=== PATIENT | female | born 1980 | race Caucasian/White ===

== ENCOUNTER 2016-12-14 14:28 | Emergency (ER) | payer OTHER ==
[2016-12-14] MEDS ORDERED: KETOROLAC TROMETHAMINE INJ 30 MG/ML VIAL IM ONE (15:40)
[2016-12-14] MEDS ORDERED: HYDROcodone 7.5MG/APAP 325MG 1 EA TAB PO ONE (15:40)
--- NOTE | 2016-12-14 16:29 | ED.PDOC ---
History of Present Illness - General Chief Complaint: Cardiovascular Problem Time Seen by Provider: 12/14/16 14:30 Source: patient Exam Limitations: no limitations - History of Present Illness Initial Comments: the patient is 36-year-old female presenting to the emergency room secondary to her blood pressure being up primarily. Her blood pressures been up for the last month or so with her checks with her primary care doctor and they have been adjusting her medications to try to control. She presented to the emergency room today in particular due to a [id number] headache that' s been present for 12-24 hours. No altered mental status. No neurological symptoms. No fevers. No cough. No sore throat. Headache is circumferential. It is not the worst headache of her life. No vision changes. No shortness of breath cough or rash. Blood pressures measured at home are in the 160s on the systolic end. The patient is morbidly obese. She does have hypothyroidism. No other symptoms. Timing/Duration: 24 hours Severity: moderate Improving Factors: nothing Worsening Factors: nothing Associated Symptoms: headaches Allergies/Adverse Reactions: Allergies NO KNOWN ALLERGY Allergy (Unverified 06/06/14 10:12) Home Medications: Ambulatory Orders Albuterol Inhaler [Proventil Hfa Inhaler] 1 puff INH PRN PRN 06/06/14 Levothyroxine Sodium [Synthroid] 112 mcg PO BEDTIME 06/06/14 Montelukast Sodium [Singulair] 10 mg PO BEDTIME 06/06/14 Cyclobenzaprine HCl [Flexeril] 10 mg PO TID #15 tab 05/28/15 Naproxen [Naprosyn] 500 mg PO BID #30 tab 05/28/15 Tramadol HCl [Ultram] 50 mg PO Q6H #30 tab 05/28/15 Review of Systems - Review of Systems Constitutional: States: malaise EENTM: States: no symptoms reported Respiratory: States: no symptoms reported Cardiology: States: no symptoms reported Gastrointestinal/Abdominal: States: no symptoms reported Genitourinary: States: no symptoms reported Musculoskeletal: States: no symptoms reported Skin: States: no symptoms reported Neurological: States: headache Endocrine: States: no symptoms reported All other Systems: No Change from Baseline Past Medical History (General) - Patient Medical History Hx Seizures: No Hx Stroke: No Hx Dementia: No Hx Asthma: Yes Hx of COPD: No Hx Cardiac Disorders: No Hx Congestive Heart Failure: No Hx Pacemaker: No Hx Hypertension: Yes Hx Thyroid Disease: Yes Hx Diabetes: No Hx Gastroesophageal Reflux: No Hx Renal Disease: No Hx Cancer: No Hx of HIV: No Hx Hepatitis C: No Hx MRSA: No - Vaccination History Hx Tetanus, Diphtheria Vaccination: No Hx Influenza Vaccination: No Hx Pneumococcal Vaccination: No - Social History Hx Tobacco Use: No Hx Alcohol Use: No Hx Substance Use: No Hx Substance Use Treatment: No Hx Depression: Yes - on medication Hx Physical Abuse: No Hx Emotional Abuse: No Hx Suspected Abuse: No - Female History Patient is a Female of Child Bearing Age (10 -59 yrs old): Yes Patient : No Family Medical History - Family History Mother Living Status: Hx Family;Other: brain aneurysm Physical Exam - Physical Exam General Appearance: Alert, Anxious, No apparent distress Eye Exam: bilateral normal Ears, Nose, Throat: normal ENT inspection, normal pharynx Neck: non-tender, full range of motion, supple Respiratory: chest non-tender, lungs clear, normal breath sounds, no respiratory distress, no accessory muscle use Cardiovascular/Chest: normal peripheral pulses, regular rate, rhythm, no edema Peripheral Pulses: radial,right: 2+, radial,left: 2+, dorsalis pedis,right: 2+, dorsalis pedis,left: 2+ Gastrointestinal/Abdominal: non tender, soft Rectal Exam: deferred Back Exam: normal inspection, no CVA tenderness Extremity: normal range of motion, non-tender, normal inspection, no pedal edema , normal capillary refill Neurologic: no motor/sensory deficits, alert, normal mood/affect, oriented x 3 Skin Exam: normal color Comments: Vital Signs - 24 hr 12/14/16 12/14/16 12/14/16 14:28 14:39 15:20 Temperature 99.1 F Pulse Rate 97 H Pulse Rate [ 98 H 91 H Left Radial] Respiratory 22 17 Rate Blood Pressure 163/115 135/79 [Right Arm] O2 Sat by Pulse 97 97 Oximetry 12/14/16 12/14/16 15:38 15:50 Temperature Pulse Rate 87 Pulse Rate [ 89 89 Left Radial] Respiratory 17 20 Rate Blood Pressure 141/93 130/81 [Right Arm] O2 Sat by Pulse 97 96 Oximetry Progress - Progress Progress: 12/14/16 16:31 Laboratory Tests 12/14/16 15:08 WBC 9.5 RBC 4.55 Hgb 13.0 Hct 38.3 MCV 84.2 MCH 28.5 MCHC 33.8 RDW 13.6 Plt Count 259 MPV 7.1 L Absolute Neuts (auto) 5.60 Absolute Lymphs (auto) 2.60 Absolute Monos (auto) 0.50 Absolute Eos (auto) 0.70 H Absolute Basos (auto) 0.10 Neutrophils % 58.6 Lymphocytes % 27.1 Monocytes % 5.4 Eosinophils % 7.9 H Basophils % 1.0 Sodium 137 Potassium 3.5 L Chloride 99 L Carbon Dioxide 31 Anion Gap 10.5 L BUN 9 Creatinine 0.63 BUN/Creatinine Ratio 14.3 Random Glucose 140 H Serum Osmolality 274.8 L Calcium 9.2 Magnesium 2.0 Total Bilirubin 0.4 AST 45 H ALT 90 H Alkaline Phosphatase 50 Creatine Kinase 130 CK-MB (CK-2) 2.2 CK-MB (CK-2) % Not Reportable Troponin I < 0.02 B-Natriuretic Peptide 40.7 Serum Total Protein 7.9 Albumin 4.3 Globulin 3.6 H Albumin/Globulin Ratio 1.2 TSH 1.14 Serum HCG, Qual Negative Urine Color Yellow Urine Appearance Clear Urine pH 6.5 Ur Specific [place] 1.015 Urine Protein Negative Urine Glucose (UA) Negative Urine Ketones Negative Urine Blood Negative Urine Nitrite Negative Urine Bilirubin Negative Urine Urobilinogen 0.2 Ur Leukocyte Esterase Negative Urine RBC 0 Urine WBC 0 Ur Epithelial Cells 1-3 Urine Bacteria 0 EKG shows normal sinus rhythm. Normal axis. No acute ST segment changes consistent with ischemia. Poor R-wave progression is present in anterior leads. This may however be due to body habitus. 12/14/16 16:33 the patient is a 36-year-old female presenting with moderate hypertension and a mild to moderate headache. She is mildly dehydrated which may be contributing to the headache. The patient was given pain medications here in the emergency room. Blood pressure actually corrected to the 120s over 70s with relaxation and treatment of headache. Motrin and Tylenol can use for headaches. Heat pad to the posterior neck may also help with the tension headache. Lab work is reassuring. The patient is to follow-up with her primary care doctor early this coming week. Thyroid function appears normal based on TSH. Departure - Departure Clinical Impression: Headache Qualifiers: Headache type: tension-type Headache chronicity pattern: acute headache Intractability: not intractable Qualifier Code: (G44.209) Tension-type headache , unspecified, not intractable Disposition: Discharge to Home or Self Care Condition: Fair Departure Forms: ED Discharge - Pt. Copy, Patient Portal Self Enrollment Diet: regular diet Activity: increase activity as tolerated Referrals: Dexter Antonio MD [Primary Care Provider] - 1-2 Weeks Home Medications: Ambulatory Orders Albuterol Inhaler [Proventil Hfa Inhaler] 1 puff INH PRN PRN 06/06/14 Levothyroxine Sodium [Synthroid] 112 mcg PO BEDTIME 06/06/14 Montelukast Sodium [Singulair] 10 mg PO BEDTIME 06/06/14 Cyclobenzaprine HCl [Flexeril] 10 mg PO TID #15 tab 05/28/15 Naproxen [Naprosyn] 500 mg PO BID #30 tab 05/28/15 Tramadol HCl [Ultram] 50 mg PO Q6H #30 tab 05/28/15 Additional Instructions: the patient is a 36-year-old female presenting with moderate hypertension and a mild to moderate headache. She is mildly dehydrated which may be contributing to the headache. The patient was given pain medications here in the emergency room. Blood pressure actually corrected to the 120s over 70s with relaxation and treatment of headache. Motrin and Tylenol can use for headaches. Heat pad to the posterior neck may also help with the tension headache. Lab work is reassuring. The patient is to follow-up with her primary care doctor early this coming week. Thyroid function appears normal based on TSH. mild elevation in glucose here today, consider checking a hemoglobin A1c with PCP.
[2016-12-14 16:38] VITALS: BP 122/71; TEMP 98.9; O2SAT 97
== END 2016-12-14 16:45 | disposition home or self-care (01) ==
LOC: ER 14:28
DX: G44.209 Tension-type headache, unspecified, not intractable (principal); I10 Essential (primary) hypertension; E86.0 Dehydration; J45.909 Unspecified asthma, uncomplicated; E07.9 Disorder of thyroid, unspecified; Z79.899 Other long term (current) drug therapy
CPT/HCPCS: 36415; 80053; 81001; 82550; 82553; 83735; 83880; 84443; 84484; 84703; 85025; 93005; J1885

== ENCOUNTER → 2017-05-23 | Outpatient (CLI) | payer OTHER | LOC: GMAM 12:56 | PROVIDERS: ATTEND Family Medicine | DX: E03.9 Hypothyroidism, unspecified (principal); I10 Essential (primary) hypertension; R73.09 Other abnormal glucose ==

== ENCOUNTER 2019-01-23 22:43 | Emergency (ER) | payer OTHER ==
[2019-01-23 23:01] VITALS: TEMP 97.9; O2SAT 97
[2019-01-23] MEDS ORDERED: LIDOCAINE 1% W/ EPINEPHRINE 20 ML VIAL INJ ONE (23:21)
[2019-01-23] MEDS ORDERED: POVIDONE IODINE 10 % 15 ML UD TOP ONE (23:28)
[2019-01-23] MEDS ORDERED: TETANUS,DIPHTHERIA,PERTUSSIS 1 EA SYG IM ONE (23:46)
[2019-01-23] MEDS ORDERED: CEPHALEXIN MONOHYDRATE 500 MG CAP PO ONE (23:47)
--- NOTE | 2019-01-23 23:49 | ED.PDOC ---
History of Present Illness - General Chief Complaint: Skin/Abrasion/Tear Stated Complaint: Dog bite left lower leg Time Seen by Provider: 01/23/19 23:46 Source: patient, Vital Signs reviewed Exam Limitations: no limitations - History of Present Illness Initial Comments: her 2 dogs were fighting over food when she put her leg in between them to separate them when one of them bit her. Both dogs can be observed for 10 days. Timing/Duration: just prior to arrival Severity: mild Location: extremities Improving Factors: nothing Worsening Factors: nothing Associated Symptoms: denies symptoms Allergies/Adverse Reactions: Allergies NO KNOWN ALLERGY Allergy (Unverified 06/06/14 10:12) Home Medications: Ambulatory Orders Albuterol Inhaler [Proventil Hfa Inhaler] 1 puff INH PRN PRN 06/06/14 Levothyroxine Sodium [Synthroid] 112 mcg PO BEDTIME 06/06/14 Montelukast [Singulair] 10 mg PO BEDTIME 06/06/14 Cyclobenzaprine HCl [Flexeril] 10 mg PO TID #15 tab 05/28/15 Naproxen [Naprosyn] 500 mg PO BID #30 tab 05/28/15 Tramadol HCl [Ultram] 50 mg PO Q6H #30 tab 05/28/15 Cephalexin Monohydrate [Keflex] 500 mg PO Q8H #30 cap 01/23/19 Review of Systems - Review of Systems Constitutional: States: no symptoms reported Respiratory: States: no symptoms reported Gastrointestinal/Abdominal: States: no symptoms reported Musculoskeletal: States: no symptoms reported Skin: States: see HPI Neurological: States: no symptoms reported Past Medical History (General) - Patient Medical History Hx Seizures: No Hx Stroke: No Hx Dementia: No Hx Asthma: Yes Hx of COPD: No Hx Cardiac Disorders: No Hx Congestive Heart Failure: No Hx Pacemaker: No Hx Hypertension: Yes Hx Thyroid Disease: Yes Hx Diabetes: Yes Hx Gastroesophageal Reflux: No Hx Renal Disease: No Hx Cancer: No Hx of HIV: No Hx Hepatitis C: No Hx MRSA: No Surgical History: appendectomy, cholecystectomy - Vaccination History Hx Tetanus, Diphtheria Vaccination: No Hx Influenza Vaccination: No Hx Pneumococcal Vaccination: No Immunizations Up to Date: Yes - Social History Hx Tobacco Use: No Hx Alcohol Use: No Hx Substance Use: No Hx Substance Use Treatment: No Hx Depression: Yes - on medication Hx Physical Abuse: No Hx Emotional Abuse: No Hx Suspected Abuse: No - Female History Patient : No Family Medical History - Family History Mother Living Status: Hx Family;Other: brain aneurysm Physical Exam - Physical Exam General Appearance: Alert, Comfortable, No apparent distress Neck: supple Cardiovascular/Chest: no edema Respiratory: no respiratory distress Extremity: normal range of motion, no pedal edema, normal capillary refill, other - curved laceration with exposed adipose Neurologic: alert, normal mood/affect, oriented x 3 Skin Exam: warm/dry, normal color Skin Problem Location: lower extremities Progress - Progress Progress: 01/23/19 23:56 Her dogs have been vaccinated. We discussed whether or not to treat with antibiotics empirically. She requests that I do. Procedures - Laceration/Wound Repair Left Calf Wound's Depth, Shape: flap, contused tissue Wound Explored: no foreign body removed Irrigated w/ Saline (cc's): 100 Betadine Prep?: Yes Anesthesia: 1% Lidocaine, Lidocaine w/ Epi Volume Anesthetic (cc's): 10 Wound Repaired With: sutures Suture Size/Type: 3:0, prolene Number of Sutures: 7 - the flap has tension on it. 5 sutures in this area to decrease tension resulted in a small "dog ear" at the end of the lac. This was clipped/lengthened with scissors to allow better approximation. Layer Closure?: No Splint Applied?: No Sling Applied?: No Departure - Departure Clinical Impression: Dog bite of extremity, Laceration Time of Disposition: 23:54 Disposition: Discharge to Home or Self Care Condition: Good Departure Forms: ED Discharge - Pt. Copy, Patient Portal Self Enrollment Instructions: Animal Bites (DC) Referrals: Dexter Antonio MD [Primary Care Provider] - 02/08/19 Prescriptions: Cephalexin Monohydrate [Keflex] 500 mg PO Q8H #30 cap Home Medications: Ambulatory Orders Albuterol Inhaler [Proventil Hfa Inhaler] 1 puff INH PRN PRN 06/06/14 Levothyroxine Sodium [Synthroid] 112 mcg PO BEDTIME 06/06/14 Montelukast [Singulair] 10 mg PO BEDTIME 06/06/14 Cyclobenzaprine HCl [Flexeril] 10 mg PO TID #15 tab 05/28/15 Naproxen [Naprosyn] 500 mg PO BID #30 tab 05/28/15 Tramadol HCl [Ultram] 50 mg PO Q6H #30 tab 05/28/15 Cephalexin Monohydrate [Keflex] 500 mg PO Q8H #30 cap 01/23/19
[2019-01-24 00:07] VITALS: BP 133/74
== END 2019-01-24 00:07 | disposition home or self-care (01) ==
LOC: ER 22:43
DX: S81.852A Open bite, left lower leg, initial encounter (principal); J45.909 Unspecified asthma, uncomplicated; I10 Essential (primary) hypertension; E07.9 Disorder of thyroid, unspecified; E11.9 Type 2 diabetes mellitus without complications; F32.9 Major depressive disorder, single episode, unspecified; Z23 Encounter for immunization; Z79.899 Other long term (current) drug therapy; W54.0XXA Bitten by dog, initial encounter; Y92.9 Unspecified place or not applicable

== ENCOUNTER → 2020-10-23 | Outpatient (CLI) | payer BC | LOC: GMAM 10:46 | PROVIDERS: ATTEND Family Medicine | DX: D51.9 Vitamin B12 deficiency anemia, unspecified (principal); E03.9 Hypothyroidism, unspecified; E55.9 Vitamin D deficiency, unspecified ==